=== PATIENT | male | born 1995 | race Caucasian/White ===

== ENCOUNTER 2018-10-18 21:41 | Emergency (ER) | payer OTHER ==
[~2018-10-18] VITALS: Ht 170.2 cm; Wt 65.9 kg
[2018-10-18] MEDS ORDERED: IBUP80TA PO (21:44)
[2018-10-18 23:07] LABS: BASO # 0.1 10^3/uL (0.0-0.2); BASO % 0.4 % (0.0-1.0); EOS # 0.1 10^3/uL (0.0-0.50); EOS % 1.1 % (0.0-3.0); HEMATOCRIT 43.2 % (42.0-52.0); HEMOGLOBIN 15.3 g/dl (13.5-17.5); LYMPH # 1.8 10^3/uL (1.5-6.5); LYMPH % 14.4 % (24.0-44.0); MEAN CORPUSCULAR HEMOGLOBIN 33.2 pg (27.0-33.0); MEAN CORPUSCULAR HGB CONC 35.4 g/dl (32.0-36.5); MEAN CORPUSCULAR VOLUME 93.7 fl (80.0-96.0); MONO # 1.2 10^3/uL (0.0-0.8); MONO % 9.6 % (0.0-5.0); NEUTROPHILS # 9.5 10^3/uL (1.8-7.7); NEUTROPHILS % 74.2 % (36.0-66.0); PLATELET COUNT, AUTOMATED 358 10^3/uL (150-450); RED BLOOD COUNT 4.61 10^6/uL (4.30-6.10); WHITE BLOOD COUNT 12.7 10^3/uL (4.0-10.0)
[2018-10-18] MEDS ORDERED: KETOROLAC 30 MG/ML VIAL (J1885) IV ONE (23:30)
[2018-10-18] MEDS ORDERED: NS 1,000 ML IV ONE (23:30)
[2018-10-18] MEDS ORDERED: methylPREDNISolone INJ 125 MG/2 ML VIAL (J2930) IV ONE (23:30)
[2018-10-18 23:38] LABS: ALBUMIN 3.6 GM/DL (3.2-5.2); ALT/SGPT 17 U/L (12-78); AMYLASE 24 U/L (25-115); BILIRUBIN,TOTAL 0.3 MG/DL (0.2-1.0); BLOOD UREA NITROGEN 12 MG/DL (7-18); CARBON DIOXIDE LEVEL 30 MEQ/L (21-32); CHLORIDE LEVEL 104 MEQ/L (98-107); CPK CREATINE PHOSPHOKINASE 150 U/L (39-308); CREATININE FOR GFR 0.97 MG/DL (0.70-1.30); GLOMERULAR FILTRATION RATE > 60.0 (>60); GLUCOSE, FASTING 70 MG/DL (70-100); LIPASE 99 U/L (73-393); POTASSIUM SERUM 3.9 MEQ/L (3.5-5.1); SODIUM LEVEL 145 MEQ/L (136-145); TOTAL PROTEIN 7.2 GM/DL (6.4-8.2)
[2018-10-19 00:48] VITALS: BP 110/59
[2018-10-19] MEDS ORDERED: PRED20TA PO (01:04)
[2018-10-19 01:28] LABS: CHLAMYDIA DNA AMPLIFICATION POSITIVE (NEGATIVE); GC DNA AMPLIFICATION NEGATIVE (NEGATIVE)
--- NOTE | 2018-10-19 09:08 | REP ---
Chest x-ray: Two views. History: Cough times 1 month. Myalgias. . Comparison study: No comparison study . Findings: There is an infiltrate in the right lower lobe consistent with pneumonia. Left lung is clear. Pleural angles are sharp. Impression: Right lower lobe pneumonia. Electronically Signed by Erick Quarles MD 10/19/2018 08:59 A
[2018-10-19] MEDS ORDERED: AZIT1POW4 PO (11:40)
--- NOTE | 2018-10-21 20:56 | ED PDOC ---
Post-Departure Follow-Up ed nurse discharge planner instructed to call pt, review cxr, ensure completing abic course, a [place] pt [place] w pcp. cxr report faxed to Jorge Luis Montero MD Oct 21, 2018 20:56
== END 2018-10-19 01:12 | disposition home or self-care (01) ==
LOC: M ED 21:41
DX: M79.10 Myalgia, unspecified site (principal); D72.829 Elevated white blood cell count, unspecified; R53.83 Other fatigue; R59.0 Localized enlarged lymph nodes; R10.9 Unspecified abdominal pain; J18.1 Lobar pneumonia, unspecified organism
CPT/HCPCS: 71046; 80053; 81001; 82150; 82550; 83690; 85025; 87086; 87491; 87591; 96374; 96375; 99284; J1885; J2930